=== PATIENT | male | born 1945 | race Caucasian/White ===

== ENCOUNTER 2018-02-26 06:19 | Day surgery (SDC) | payer MEDICARE ==
[~2018-02-26 06:19] MED LIST: KETOROLAC TROMETHAMINE 0.45% 4 DROP/0.4 ML DROPERETTE OS PRN; TETRACAINE HCL 0.5% OPH SOLN 4 ML OS PRN
[2018-02-26] MEDS: BESIFLOXACIN HCL 0.6% OPH SUSP 5 ML BOTTLE OS PRN ×4 (06:40→07:58)
[2018-02-26] MEDS: TETRACAINE HCL 0.5% OPH SOLN 4 ML ONE ×4 (06:40→07:37)
[2018-02-26] MEDS: CYCLOPENTOLATE 0.2%/PHENYLEPHRINE 1% OPH SOLN 2 ML OS PRN ×3 (06:40→07:04)
[2018-02-26] MEDS: TROPICAMIDE 1% OPH SOLN 3 ML OS PRN ×3 (06:40→07:04)
[2018-02-26] MEDS ORDERED: MIDAZOLAM 2 MG/2 ML INJ ONE (07:08)
[2018-02-26] MEDS: LIDOCAINE 1% INJ-PF (10 MG/ML) 30 ML SDV ONE ×2 (07:46)
[2018-02-26] MEDS: CHONDR SU A NA/HYALUR INTRAOC KIT (SURGICARE) ONE ×2 (07:46)
[2018-02-26] MEDS: EPINEPHRINE INJ/PF 1 MG/1 ML AMPULE ONE ×2 (07:46)
[2018-02-26] MEDS: DORZOLAMIDE HCL 2%/TIMOLOL MALEAT 0.5% OPH SOLN 10 ML ONE ×2 (07:58)
--- NOTE | 2018-02-27 11:41 | [facility] DISCHARGE SUMMARY E ---
[facility] Discharge Summary NAME: FLORENCIA JACK AGE: 72Y ADMITTED: 02/26/2018 DISCHARGED: 02/26/2018 DIAGNOSIS: CATARACT, LEFT EYE. SUMMARY: This is a 72-year-old male who underwent cataract extraction, left eye. He underwent surgery because he was having difficulty seeing road signs clearly. DISCHARGE INSTRUCTIONS: He should be on a regular diet, no bending at his waist, and no heavy lifting. He should use his Besivance, Ilevro, and Durezol at 3 p.m. and 8 p.m. and sleep with a rigid shield. I will see him for his 1-day postoperative tomorrow. DICTATING PHYSICIAN: ANASTASIIA DANIEL M.D. 1209M [id number] PHY#: [id number] ID: [id number] JOB#: [id number] ACCT: [id number] cc:ANASTASIIA DANIEL M.D. >
--- NOTE | 2018-02-27 11:42 | [facility] OPERATIVE REPORT E ---
[facility] Operative Report NAME: FLORENCIA JACK AGE: 72Y DATE OF SURGERY: 02/26/2018 ROOM: PREOPERATIVE DIAGNOSIS: CATARACT, LEFT EYE. POSTOPERATIVE DIAGNOSIS: CATARACT, LEFT EYE. OPERATION: Cataract extraction with insertion of an IOL of the left eye. SURGEON: ANASTASIIA DANIEL M.D. ANESTHESIA: Topical. PROCEDURE: After obtaining appropriate consent, the patient's left eye was prepped and draped in sterile fashion as well as the surgeon in a sterile manner and cataract surgery was started. First a paracentesis blade was used to make a side-port incision. Viscoelastic was used to inflate the anterior chamber. Next a 2.4 mm incision was made with a 2.4 mm blade, clear corneal temporally. A continuous capsulorrhexis was made using a cystotome and Utrata forceps. Following this hydrodissection was carried out to make the lens fully loose and mobile and it was rotated 90 degrees. Following this, a awrddf-hfg-agcdtfi technique was used to phacoemulsify the lens with a CDE of 8.49. The remaining cortex was removed with irrigation/aspiration. Provisc was instilled into the capsular bag to inflate the bag. A SN60WF, 22.5 diopter lens was placed. The remaining viscoelastic material was removed with irrigation/aspiration. Following this, the incision was found to be watertight. Besivance was instilled into the eye and a protective shield was placed over the eye. The patient returned to the postoperative recovery in stable condition. DICTATING PHYSICIAN: ANASTASIIA DANIEL M.D. 1209M 1138 PHY#: [id number] ID: [id number] JOB#: [id number] ACCT: [id number] cc:ANASTASIIA DANIEL M.D. >
== END 2018-02-26 08:47 | disposition home or self-care (01) ==
LOC: SC 06:19
PROVIDERS: ATTEND Internal Medicine
DX: H25.812 Combined forms of age-related cataract, left eye (principal); I10 Essential (primary) hypertension; Z79.899 Other long term (current) drug therapy; F17.210 Nicotine dependence, cigarettes, uncomplicated; Z88.2 Allergy status to sulfonamides; Z79.82 Long term (current) use of aspirin
CPT/HCPCS: 66984; V2632; J2250; J3490 ×3; J0171; 142

== ENCOUNTER 2018-03-19 09:14 | Day surgery (SDC) | payer MEDICARE ==
[~2018-03-19 09:14] MED LIST changes: +CHONDR SU A NA/HYALUR INTRAOC KIT (SURGICARE) ONE; +EPINEPHRINE INJ/PF 1 MG/1 ML AMPULE ONE; +KETOROLAC TROMETHAMINE 0.45% 4 DROP/0.4 ML DROPERETTE OD PRN; -KETOROLAC TROMETHAMINE 0.45% 4 DROP/0.4 ML DROPERETTE OS PRN; +LIDOCAINE 1% INJ-PF (10 MG/ML) 30 ML SDV ONE; -TETRACAINE HCL 0.5% OPH SOLN 4 ML OS PRN
[2018-03-19] MEDS: TROPICAMIDE 1% OPH SOLN 3 ML OD PRN ×3 (10:19→10:39)
[2018-03-19] MEDS: CYCLOPENTOLATE 0.2%/PHENYLEPHRINE 1% OPH SOLN 2 ML OD PRN ×3 (10:19→10:39)
[2018-03-19] MEDS: BESIFLOXACIN HCL 0.6% OPH SUSP 5 ML BOTTLE OD PRN ×4 (10:19→11:17)
[2018-03-19] MEDS: TETRACAINE HCL 0.5% OPH SOLN 4 ML OD PRN ×3 (10:20→10:52)
[2018-03-19] MEDS ORDERED: MIDAZOLAM 2 MG/2 ML INJ ONE (10:42)
--- NOTE | 2018-03-19 19:47 | [facility] OPERATIVE REPORT E ---
[facility] Operative Report NAME: FLORENCIA JACK AGE: 72Y DATE OF SURGERY: 03/19/2018 ROOM: PREOPERATIVE DIAGNOSIS: CATARACT RIGHT EYE. POSTOPERATIVE DIAGNOSIS: CATARACT RIGHT EYE. OPERATION: Cataract extraction with intraocular lens implant of the right eye with a toric multifocal lens. SURGEON: ANASTASIIA DANIEL M.D. ANESTHESIA: MAC with retrobulbar. COMPLICATIONS: None. ESTIMATED BLOOD LOSS: None. PROCEDURE: After appropriate consent was obtained and calculations made, the patient was brought back to the operating room where the patient was prepped and draped in sterile fashion. A lid speculum was placed and attention was directed to a paracentesis where a paracentesis blade made a small incision. Viscoelastic was then used to inflate the anterior chamber. Next a 2.4 mm incision was made with the paracentesis blade. A continuous capsulorhexis forceps of approximately 5 mm was done using a cystitome and capsulorhexis forceps. Hydrodissection was carried out to make the lens freely mobile and then a divide and conquer technique was used to remove the lens with a CDE of approximately 6.21. Following this, the remaining cortical material was removed with irrigation/aspiration. After this the patient was then again marked. The marking procedure started in the preoperative holding area where 180 and 0 was marked with a marker. Now that the patient was in the operating room a 360-degree marker was used to maico the axis at approximately 110 degrees and a toric lens of 20.5 diopters [id number] rotated to 4 degrees was injected into the bag after filling with viscoelastic and rotating into proper position. The I/A was used to remove the viscoelastic material and the toric lens appeared to be appropriately aligned. he patient returned to postoperative recovery in stable condition. besicance was instilled into the eye. DICTATING PHYSICIAN: ANASTASIIA DANIEL M.D. 1217M 1943 PHY#: [id number] ID: [id number] JOB#: [id number] ACCT: [id number] cc:ANASTASIIA DANIEL M.D. > MTDD
--- NOTE | 2018-03-19 19:52 | [facility] DISCHARGE SUMMARY E ---
[facility] Discharge Summary NAME: FLORENCIA JACK AGE: 72Y ADMITTED: 03/19/2018 DISCHARGED: This is a 72-year-old male who underwent cataract extraction of the right eye. DIAGNOSIS: Cataract, right eye, with insertion of a toric IOL. He underwent surgery because he was having glare from headlights at night. He should be on a regular diet. No bending at the waist and no heavy lifting. He should use his Besivance, Ilevro, and Durezol at 3:00 p.m. and 8:00 p.m. and sleep with a rigid shield. I will see him in 1 day for his postoperative. DICTATING PHYSICIAN: ANASTASIIA DANIEL M.D. 1217M 1946 PHY#: [id number] ID: [id number] JOB#: [id number] ACCT: [id number] cc:ANASTASIIA DANIEL M.D. >
== END 2018-03-19 11:59 | disposition home or self-care (01) ==
LOC: SC 09:14
PROVIDERS: ATTEND Internal Medicine
DX: H25.811 Combined forms of age-related cataract, right eye (principal)
CPT/HCPCS: 66984; V2788; J2250; J3490 ×3; A9270; J0171; 142